=== PATIENT | female | born 1960 | race Caucasian/White ===

== ENCOUNTER 2017-01-16 13:33 | Inpatient (IN) | payer MEDICAID, MEDICARE ==
[2017-01-16] MEDS ORDERED: HYDROmorphone 0.5 MG/0.5 ML Syringe IVPUSH ONE ×2 (15:23→18:02)
[2017-01-16] MEDS ORDERED: Sodium Chloride 0.9% 1,000 ML IV SCH (15:30)
--- NOTE | 2017-01-16 15:30 | EDM.PDOC ---
ED HPI GENERAL MEDICAL PROBLEM - General Chief Complaint: Abdominal Pain Stated Complaint: SWEATS/UPPER STOMACH ACHE Time Seen by Provider: 01/16/17 15:10 Source of Information: Reports: Patient History Limitations: Reports: No Limitations - History of Present Illness INITIAL COMMENTS - FREE TEXT/NARRATIVE: 56-year-old female who had a gastric bypass 2 years ago and who has done very well has had a few episodes of intermittent epigastric pain that lasted up to an hour but she "was able to breathe through them". Today she has developed the pain again and it is lasted for several hours, waxing and waning but slowly getting worse. She is very uncomfortable. No fevers or chills, no diarrhea, no abdominal distention. She tried to drink some water but it made it worse, she took some gas medication and there was no effect. She has no nausea. The pain does not radiate. Onset: Gradual Duration: Hour(s): (She's had pain now for 3-5 hours) Location: Reports: Abdomen Quality: Reports: Sharp, Other (Recurring cramping sharp pain) Severity: Moderate Improves with: Reports: None Worsens with: Reports: Other (Worsened when she tried to drink water) Associated Symptoms: Reports: Diaphoresis (Experienced a significant episode of significant diaphoresis prior to coming in), Loss of Appetite. Denies: Chest Pain, Cough, Fever/Chills (Patient experienced a significant episode of diaphoresis prior to coming in), Nausea/Vomiting, Shortness of Breath Upper Abdomen Pain Score (Numeric/FACES): 8 - Related Data Allergies Allergy/AdvReac Type Severity Reaction Status Date / Time No Known Allergies Allergy Verified 01/16/17 19:39 Home Meds: Home Meds Diclofenac Sodium [Voltaren 1% Gel] 1 applic TP QID PRN 06/06/14 [History] Acetaminophen [Tylenol] 650 mg PO Q6H PRN #100 ml 06/10/14 [Rx] Past Medical History HEENT History: Reports: Impaired Vision Gastrointestinal History: Reports: Hiatal Hernia Musculoskeletal History: Reports: Arthritis Psychiatric History: Reports: Depression - Past Surgical History GI Surgical History: Reports: Bariatric Procedure, EGD, Hernia Repair/Other Social & Family History - Tobacco Use Smoking Status *Q: Former Smoker Years of Tobacco use: 25 Used Tobacco, but Quit: No Month Tobacco Last Used: 03/2014 Second Hand Smoke Exposure: No - Caffeine Use Caffeine Use: Reports: Coffee - Alcohol Use Days Per Week of Alcohol Use: 0 - Recreational Drug Use Recreational Drug Use: No ED ROS GENERAL - Review of Systems Review Of Systems: See Below Constitutional: Denies: Fever, Chills, Malaise HEENT: Reports: No Symptoms Respiratory: Denies: Shortness of Breath, Cough Cardiovascular: Denies: Chest Pain GI/Abdominal: Reports: Abdominal Pain. Denies: Constipation, Diarrhea, Hematemesis, Nausea, Vomiting : Reports: No Symptoms Musculoskeletal: Reports: No Symptoms Skin: Reports: Diaphoresis Neurological: Reports: No Symptoms ED EXAM, GI/ABD - Physical Exam Exam: See Below Exam Limited By: No Limitations General Appearance: Alert, Anxious, Mild Distress Eyes: Bilateral: Normal Appearance (Normal hydration, crying tears, no jaundice) Throat/Mouth: Normal Inspection Head: Atraumatic Respiratory/Chest: No Respiratory Distress, Lungs Clear Cardiovascular: Regular Rate, Rhythm GI/Abdominal Exam: Normal Bowel Sounds, Soft, Tender (Patient is very tender to palpation in the right upper quadrant to epigastric area), Other (Some peritoneal rebound tenderness felt in the upper abdomen with lower abdominal palpation) Course - Vital Signs Last Recorded V/S: Last Vital Signs Temp 97.6 F 01/17/17 16:30 Pulse 79 01/17/17 17:00 Resp 16 01/17/17 17:00 BP 122/53 L 01/17/17 17:00 Pulse Ox 96 01/17/17 17:00 - Orders/Labs/Meds Orders: Medication Orders Hydrocodone Bitart/Acetaminophen ([place] 325-5 Mg) 1 - 2 tab PO Q4H PRN PRN Reason: PAIN Last Admin: 01/17/17 16:44 Dose: 2 tab Diphenhydramine HCl (Benadryl) 25 - 50 mg IVPUSH Q4H PRN PRN Reason: Itching Diphenhydramine HCl (Benadryl) 25 - 50 mg PO Q4H PRN PRN Reason: Itching Hydromorphone HCl (Dilaudid [employer] 15 Mg In Ns 30 Ml) 0 mg IV ASDIRECTED PRN; Protocol PRN Reason: Pain Last Admin: 01/16/17 20:06 Dose: 15 mg Aztreonam/Dextrose 1 gm/ (Premix) 50 mls @ 100 mls/hr IV Q8HR [facility] Last Admin: 01/17/17 14:45 Dose: 100 mls/hr Dextrose/Lactated Ringer's (Dextrose 5%-Lactated Ringers) 1,000 mls @ 150 mls/ hr IV ASDIRECTED [facility] Ampicillin Sodium/Sulbactam (Sodium 3 gm/ Sodium Chloride) 100 mls @ 200 mls/ hr IV Q6H [facility] Influenza Virus Vaccine (Fluzone Quad [id number]) 60 mcg IM .ONCE ONE Stop: 01/17/17 21:01 Naloxone HCl (Narcan) 0.4 mg IVPUSH Q2M PRN PRN Reason: Respiratory Distress Ondansetron HCl (Zofran) 4 mg IVPUSH Q4H PRN PRN Reason: NAUSEA Pantoprazole Sodium (Protonix Iv) 40 mg IV Q24H [facility] Last Admin: 01/17/17 17:28 Dose: 40 mg Labs: Laboratory Tests 01/16/17 01/16/17 Range/Units 15:35 15:35 WBC 12.6 H (4.5-11.0) K/uL RBC 5.10 (3.30-5.50) M/uL Hgb 16.0 H (12.0-15.0) g/dL Hct 45.5 (36.0-48.0) % MCV 89 (80-98) fL MCH 31 (27-31) pg MCHC 35 (32-36) % Plt Count 240 (150-400) K/uL Neut % (Auto) 88 H (36-66) % Lymph % (Auto) 6 L (24-44) % [place] % (Auto) 6 (2-6) % Eos % (Auto) 0 L (2-4) % Baso % (Auto) 0 (0-1) % Sodium 138 L (140-148) mmol/L Potassium 3.9 (3.6-5.2) mmol/L Chloride 105 (100-108) mmol/L Carbon Dioxide 25 (21-32) mmol/L Anion Gap 11.9 (5.0-14.0) mmol/L BUN 12 (7-18) mg/dL Creatinine 0.6 (0.6-1.0) mg/dL Est Cr Clr Drug Dosing 107.16 mL/min Estimated GFR (MDRD) > 60 (>60) Glucose 103 (74-106) mg/dL Calcium 8.9 (8.5-10.1) mg/dL Total Bilirubin 0.8 D (0.2-1.0) mg/dL AST 357 H D (15-37) U/L ALT 215 H (12-78) U/L Alkaline Phosphatase 157 H (46-116) U/L Total Protein 6.5 (6.4-8.2) g/dL Albumin 3.4 (3.4-5.0) g/dL Globulin 3.1 (2.3-3.5) g/dL Albumin/Globulin Ratio 1.1 L (1.2-2.2) Amylase 39 (25-115) U/L Lipase 125 (73-393) U/L Meds: Medications Generic Name Dose Route Start Last Admin Trade Name Freq PRN Reason Stop Dose Admin Hydrocodone Bitart/Acetaminophen 1 - 2 tab 01/17/17 15:07 01/17/17 16:44 [place] 325-5 Mg PO 2 tab Q4H PRN Administration PAIN Diphenhydramine HCl 25 - 50 mg 01/17/17 16:23 Benadryl IVPUSH Q4H PRN Itching Diphenhydramine HCl 25 - 50 mg 01/17/17 16:26 Benadryl PO Q4H PRN Itching Hydromorphone HCl 0 mg 01/16/17 19:35 01/16/17 20:06 Dilaudid [employer] 15 Mg In Ns 30 Ml IV 15 mg ASDIRECTED PRN Administration Pain Protocol Aztreonam/Dextrose 1 gm/ 50 mls @ 100 mls/hr 01/17/17 14:00 01/17/17 14:45 Premix IV 100 mls/hr Q8HR [facility] Administration Dextrose/Lactated Ringer's 1,000 mls @ 150 mls/hr 01/17/17 15:15 Dextrose 5%-Lactated Ringers IV ASDIRECTED [facility] Ampicillin Sodium/Sulbactam 100 mls @ 200 mls/hr 01/17/17 20:00 Sodium 3 gm/ Sodium Chloride IV Q6H [facility] Influenza Virus Vaccine 60 mcg 01/17/17 21:00 Fluzone Quad [id number] IM 01/17/17 21:01 .ONCE ONE Naloxone HCl 0.4 mg 01/16/17 19:35 Narcan IVPUSH Q2M PRN Respiratory Distress Ondansetron HCl 4 mg 01/17/17 15:13 Zofran IVPUSH Q4H PRN NAUSEA Pantoprazole Sodium 40 mg 01/17/17 16:00 01/17/17 17:28 Protonix Iv IV 40 mg Q24H [facility] Administration Discontinued Medications Generic Name Dose Route Start Last Admin Trade Name Freq PRN Reason Stop Dose Admin Bupivacaine HCl/Epinephrine Bitart Confirm 01/17/17 11:30 01/17/17 13:36 Marcaine 0.5%/Epinephrine 1:200,000 Administered 01/17/17 11:31 20 ml Dose Administration 50 ml .ROUTE .STK-MED ONE Dexamethasone Confirm 01/17/17 11:11 Dexamethasone Administered 01/17/17 11:12 Dose 4 mg .ROUTE .STK-MED ONE Diphenhydramine HCl 25 - 50 mg 01/16/17 22:13 01/17/17 07:58 Benadryl IVPUSH 50 mg Q4H PRN Administration Itching Fentanyl Confirm 01/17/17 11:11 Sublimaze Administered 01/17/17 11:12 Dose 250 mcg .ROUTE .STK-MED ONE Glycopyrrolate Confirm 01/17/17 11:11 Robinul Administered 01/17/17 11:12 Dose 1 mg .ROUTE .STK-MED ONE Hydromorphone HCl 0.5 mg 01/16/17 15:23 01/16/17 15:57 Dilaudid IVPUSH 01/16/17 15:24 0.5 mg ONETIME ONE Administration Hydromorphone HCl 0.5 mg 01/16/17 18:02 01/16/17 18:11 Dilaudid IVPUSH 01/16/17 18:03 0.5 mg ONETIME ONE Administration Hydroxyzine HCl 50 mg 01/17/17 14:06 01/17/17 14:13 Vistaril IM 01/17/17 14:07 50 mg ONETIME ONE Administration Sodium Chloride 1,000 mls @ 500 mls/hr 01/16/17 15:30 01/16/17 15:56 Normal Saline IV 500 mls/hr ASDIRECTED [facility] Administration Ampicillin Sodium/Sulbactam 100 mls @ 200 mls/hr 01/16/17 20:00 01/17/17 08: 18 Sodium 3 gm/ Sodium Chloride IV 200 mls/hr Q6H [facility] Administration Dextrose/Lactated Ringer's 1,000 mls @ 150 mls/hr 01/16/17 19:45 01/17/17 04: 51 Dextrose 5%-Lactated Ringers IV 150 mls/hr ASDIRECTED [facility] Administration Aztreonam 1 gm/ Sodium 50 mls @ 100 mls/hr 01/16/17 22:00 01/17/17 05:15 Chloride IV 100 mls/hr Q8HR [facility] Administration Dextrose/Lactated Ringer's 1,000 mls @ 100 mls/hr 01/17/17 07:21 Dextrose 5%-Lactated Ringers IV ASDIRECTED [facility] Ampicillin Sodium/Sulbactam 100 mls @ 200 mls/hr 01/17/17 12:15 01/17/17 12: 45 Sodium 3 gm/ Sodium Chloride IV 01/17/17 12:44 200 mls/hr ONETIME ONE Administration Lactated Ringer's Confirm 01/17/17 12:49 Ringers, Lactated Administered 01/17/17 12:50 Dose 1,000 mls @ as directed .ROUTE .STK-MED ONE Influenza Virus Vaccine 1 each 01/17/17 12:00 Pharmacy To Dose - Influenza Vaccine IM 01/17/17 12:01 ONETIME ONE Influenza Virus Vaccine 60 mcg 01/16/17 20:15 01/17/17 00:26 Fluzone Quad [id number] IM 01/16/17 20:16 Not Given .ONCE ONE Midazolam HCl Confirm 01/17/17 11:11 Versed 1 Mg/Ml Administered 01/17/17 11:12 Dose 2 mg .ROUTE .STK-MED ONE Neostigmine Methylsulfate Confirm 01/17/17 11:11 Neostigmine Administered 01/17/17 11:12 Dose 5 mg .ROUTE .STK-MED ONE Ondansetron HCl Confirm 01/17/17 11:11 Zofran Administered 01/17/17 11:12 Dose 4 mg .ROUTE .STK-MED ONE Propofol Confirm 01/17/17 11:11 Diprivan 20 Ml Administered 01/17/17 11:12 Dose 200 mg .ROUTE .STK-MED ONE Rocuronium [place] Confirm 01/17/17 11:11 Zemuron Administered 01/17/17 11:12 Dose 50 mg .ROUTE .[facility] ONE - Re-Assessments/Exams Free Text/Narrative Re-Assessment/Exam: 01/16/17 15:29 An IV was started, hydration with normal saline was initiated and the patient given 0.5 mg of Dilaudid IV. A CBC, CMP, amylase, lipase were obtained with the intent of obtaining an IV contrast enhanced abdominal CAT scan when the labs return. 01/16/17 17:59 White count was 12,600. AST, ALT, alkaline phosphatase were all elevated but bilirubin was normal. Because of the localized epigastric and right upper quadrant pain and elevated LFTs, a gallbladder ultrasound was obtained prior to a CT scan. This was positive with a lot of stones, thickened wall so Dr. Padilla was consulted and accepted the patient to be admitted and covered for acute cholecystitis with intention of having surgery tomorrow. Departure - Departure Time of Disposition: 18:54 Disposition: Admitted As Inpatient 68 Condition: Fair Clinical Impression: Cholecystitis Abdominal pain Qualifiers: Abdominal location: right upper quadrant Qualified Code(s): R10.11 - Right upper quadrant pain - Discharge Information
[2017-01-16] MEDS ORDERED: HYDROmorphone/Normal Saline 15 MG/30 ML PCA IV PRN (19:35)
[2017-01-16] MEDS ORDERED: Naloxone 0.4 MG/ML SDV IVPUSH PRN (19:35)
[2017-01-16] MEDS: Ampicillin/Sulbactam Na 3 GM in Sodium Chloride 0.9% 100 ML IV SCH (20:05)
[2017-01-16] MEDS: Dextrose 5%-Lactated Ringers 1,000 ML IV SCH (20:06)
[2017-01-16] MEDS ORDERED: FLU Vacc QS 2017-18 (36mos UP)/PF 60 MCG/0.5 ML Syringe IM ONE (20:15)
[2017-01-16] MEDS: diphenhydrAMINE 50 MG/ML SDV IVPUSH PRN (22:55)
[2017-01-17] MEDS: Ampicillin/Sulbactam Na 3 GM in Sodium Chloride 0.9% 100 ML IV SCH ×3 (01:51→20:19)
[2017-01-17] MEDS: diphenhydrAMINE 50 MG/ML SDV IVPUSH PRN ×2 (03:41→07:58)
[2017-01-17] MEDS: Dextrose 5%-Lactated Ringers 1,000 ML IV SCH (04:51)
[2017-01-17] MEDS ORDERED: Dextrose 5%-Lactated Ringers 1,000 ML IV SCH ×2 (07:21→15:15)
--- NOTE | 2017-01-17 08:54 | PCM.HP ---
H&P History of Present Illness - General Admit Problem/Dx: Admission Diagnosis/Problem Admission Diagnosis/Problem Cholecystitis Source of Information: Patient - History of Present Illness Initial Comments - Free Text/Narative: Sudden onset of right upper quadrant abdominal pain yesterday. Symptom Onset Date: 01/16/17 Location: Reports: Abdomen Severity: Moderate Improves with: Reports: Medication Worsens with: Reports: Eating, Movement Context: Reports: Sick Contact Associated Symptoms: Reports: Loss of Appetite, Nausea/Vomiting Upper Abdomen Pain Score (Numeric/FACES): 4 - Related Data Allergies/Adverse Reactions: Allergies Allergy/AdvReac Type Severity Reaction Status Date / Time No Known Allergies Allergy Verified 01/16/17 19:39 Home Medications: Home Meds Diclofenac Sodium [Voltaren 1% Gel] 1 applic TP QID PRN 06/06/14 [History] Acetaminophen [Tylenol] 650 mg PO Q6H PRN #100 ml 06/10/14 [Rx] Past Medical History HEENT History: Reports: Impaired Vision Gastrointestinal History: Reports: Hiatal Hernia Musculoskeletal History: Reports: Arthritis Psychiatric History: Reports: Depression - Past Surgical History GI Surgical History: Reports: Bariatric Procedure, EGD, Hernia Repair/Other Social & Family History - Family History Family Medical History: Noncontributory - Tobacco Use Smoking Status *Q: Light Tobacco Smoker Years of Tobacco use: 17 Packs/Tins Daily: 0.2 Used Tobacco, but Quit: No Month Tobacco Last Used: 03/2014 Second Hand Smoke Exposure: Yes - Caffeine Use Caffeine Use: Reports: Coffee - Alcohol Use Days Per Week of Alcohol Use: 0 Number of Drinks Per Day: 0 Total Drinks Per Week: 0 - Recreational Drug Use Recreational Drug Use: No H&P Review of Systems - Review of Systems: Review Of Systems: ROS reveals no pertinent complaints other than HPI. Exam - Exam Exam: See Below - Vital Signs Vital Signs: Last Vital Signs Temp 97.5 F 01/17/17 08:03 Pulse 57 L 01/17/17 08:03 Resp 16 01/17/17 08:03 BP 101/59 L 01/17/17 08:03 Pulse Ox 99 01/17/17 08:03 Weight: 152 lb 6.4 oz - Exam Quality Assessment: DVT Prophylaxis General: Mild Distress HEENT: PERRLA Neck: Supple, Trachea Midline Lungs: Clear to Auscultation, Normal Respiratory Effort Cardiovascular: Regular Rate, Regular Rhythm GI/Abdominal Exam: Tender (in right upper quadrant) (Female) Exam: Deferred Rectal (Female) Exam: Deferred Back Exam: Normal Inspection Extremities: Normal Inspection Skin: Warm, Dry, Intact Neurological: Cranial Nerves Intact, Reflexes Equal Bilateral Neuro Extensive - Mental Status: Alert, Oriented x3 Neuro Extensive - Motor, Sensory, Reflexes: CN II-XII Intact Psychiatric: Labile Mood - Patient Data Result Diagrams: 01/16/17 15:35 01/16/17 15:35 *Q Meaningful Use (ADM) - VTE *Q VTE Criteria *Q: - Stroke *Q Stroke Criteria *Q: - AMI *Q AMI Criteria *Q: - Problem List (1) Cholecystitis SNOMED Code(s): 53537123 ICD Code: K81.9 - CHOLECYSTITIS, UNSPECIFIED Status: Acute Current Visit : Yes (2) Abdominal pain SNOMED Code(s): 24013462 ICD Code: R10.9 - UNSPECIFIED ABDOMINAL PAIN Status: Acute Current Visit : Yes Qualifiers: Abdominal location: right upper quadrant Qualified Code(s): R10.11 - Right upper quadrant pain (3) History of Arjun-en-Y gastric bypass SNOMED Code(s): 256147234 ICD Code: Z98.84 - BARIATRIC SURGERY STATUS Status: Chronic Current Visit : No Onset Date: 06/07/14 Problem List Initiated/Reviewed/Updated: Yes Orders Last 24hrs: Active Orders 24 hr Category Date Time Status Admission Status [Patient Status] [ADT] Routine ADT 01/16/17 17:00 Active Patient Status [ADT] Routine ADT 01/16/17 17:00 Active Communication Order [RC] STAT Care 01/16/17 19:35 Active Incentive Spirometry [RT Incentive Spirometry] [RC] Care 01/17/17 07:22 Active ASDIRECTED Notify Provider [RC] PRN Care 01/16/17 19:35 Active Oxygen Therapy [RC] PRN Care 01/16/17 19:32 Active [employer] Record [RC] PER UNIT ROUTINE Care 01/16/17 19:35 Active Pulse Oximetry [RC] CONTINUOUS Care 01/16/17 19:35 Active Up ad Damaris [RC] ASDIRECTED Care 01/16/17 19:32 Active Verify Patient Consent Obtain [RC] ASDIRECTED Care 01/17/17 07:20 Active Vital Signs [RC] Q4H Care 01/16/17 19:32 Active Nothing per Oral Now Diet [DIET] Diet 01/16/17 Breakfast Active FERRITIN [CHEM] Routine Lab 01/17/17 06:40 Ordered FOLIC ACID [CHEM] Routine Lab 01/17/17 06:40 Ordered VITAMIN B-1, THIAMINE, PLASMA [REF] Urgent Lab 01/17/17 06:46 Received VITAMIN B12 [CHEM] Routine Lab 01/17/17 06:40 Ordered Ampicillin/Sulbactam Na [Unasyn] 3 gm Med 01/16/17 20:00 Active Sodium Chloride 0.9% [Normal Saline] 100 ml IV Q6H Aztreonam/Dextrose-Water [Azactam in Dextrose,Iso- Med 01/17/17 14:00 Active Osmotic 1 GM/50 ML] 1 gm Premix Bag 1 bag IV Q8HR Dextrose 5%-Lactated Ringers 1,000 ml Med 01/17/17 07:21 Active IV ASDIRECTED FLU Vacc [id number] 36Mos UP/PF [Fluzone Quad [id number]] Med 01/17/17 13:00 Once 60 mcg IM .ONCE ONE HYDROmorphone/Normal Saline [Dilaudid [employer] 15 MG in NS Med 01/16/17 19:35 Active 30 ML] See Protocol IV ASDIRECTED PRN Naloxone [Narcan] Med 01/16/17 19:35 Active 0.4 mg IVPUSH Q2M PRN diphenhydrAMINE [Benadryl] Med 01/16/17 22:13 Active 25 - 50 mg IVPUSH Q4H PRN Medication Discontinuation Instructions [OM.PC] Stat Oth 01/16/17 19:35 Ordered SCD [Sequential Compression Device] [OM.PC] Routine Oth 01/16/17 19:37 Ordered Code Status [Resuscitation Status] Routine Resus Stat 01/16/17 19:25 Ordered Medication Orders Diphenhydramine HCl (Benadryl) 25 - 50 mg IVPUSH Q4H PRN PRN Reason: Itching Last Admin: 01/17/17 07:58 Dose: 50 mg Admin: 01/17/17 03:41 Dose: 50 mg Admin: 01/16/17 22:55 Dose: 25 mg Hydromorphone HCl (Dilaudid [place] [employer] 15 Mg In Ns 30 Ml) 0 mg IV ASDIRECTED PRN; Protocol PRN Reason: Pain Last Admin: 01/16/17 20:06 Dose: 15 mg Ampicillin Sodium/Sulbactam (Sodium 3 gm/ Sodium Chloride) 100 mls @ 200 mls/ hr IV Q6H [facility] Last Admin: 01/17/17 08:18 Dose: 200 mls/hr Admin: 01/17/17 01:51 Dose: 200 mls/hr Admin: 01/16/17 20:05 Dose: 200 mls/hr Aztreonam/Dextrose 1 gm/ (Premix) 50 mls @ 100 mls/hr IV Q8HR [facility] Dextrose/Lactated Ringer's (Dextrose 5%-Lactated Ringers) 1,000 mls @ 100 mls/ hr IV ASDIRECTED [facility] Influenza Virus Vaccine (Fluzone Quad [id number]) 60 mcg IM .ONCE ONE Stop: 01/17/17 13:01 Naloxone HCl (Narcan) 0.4 mg IVPUSH Q2M PRN PRN Reason: Respiratory Distress Plan: Scheduled Laparoscopic possible open Cholecystectomy - General anesthesia - Case to Follow - NPO - Bryson Mario 01/17/17
[2017-01-17] MEDS ORDERED: Dexamethasone 4 MG/ML SDV ONE (11:11)
[2017-01-17] MEDS ORDERED: Ondansetron 4 MG/2 ML SDV ONE (11:11)
[2017-01-17] MEDS ORDERED: fentaNYL 250 MCG/5 ML SDV ONE (11:11)
[2017-01-17] MEDS ORDERED: Neostigmine Methylsulfate 1 MG/ML 5 ML Syringe ONE (11:11)
[2017-01-17] MEDS ORDERED: Propofol 200 MG/20 ML SDV ONE (11:11)
[2017-01-17] MEDS ORDERED: Midazolam 1 MG/ML 2 ML SDV ONE (11:11)
[2017-01-17] MEDS ORDERED: Rocuronium 50 MG/5 ML Vial ONE (11:11)
[2017-01-17] MEDS ORDERED: Glycopyrrolate 0.2 MG/ML 5 ML MDV ONE (11:11)
[2017-01-17] MEDS ORDERED: Bupivacaine 0.5%/EPINEPHrine 1:200,000 50 ML MDV ONE (11:30)
[2017-01-17] MEDS ORDERED: Ampicillin/Sulbactam Na 3 GM in Sodium Chloride 0.9% 100 ML IV ONE (12:15)
[2017-01-17] MEDS ORDERED: Lactated Ringers 1,000 ML ONE (12:49)
[2017-01-17] MEDS ORDERED: FLU Vacc QS 2017-18 (36mos UP)/PF 60 MCG/0.5 ML Syringe IM ONE ×2 (13:00→21:00)
[2017-01-17] MEDS ORDERED: hydrOXYzine HCl 100 MG/2 ML SDV IM ONE (14:06)
[2017-01-17] MEDS: Aztreonam/Dextrose-Water 1 GM in Premix Bag 1 BAG IV SCH ×2 (14:45→22:21)
[2017-01-17] MEDS ORDERED: Ondansetron 4 MG/2 ML SDV IVPUSH PRN (15:13)
[2017-01-17] MEDS ORDERED: Pantoprazole 40 MG Vial IV SCH (16:00)
[2017-01-17] MEDS ORDERED: diphenhydrAMINE 50 MG/ML SDV IVPUSH PRN (16:23)
[2017-01-17] MEDS ORDERED: diphenhydrAMINE 25 MG Cap PO PRN (16:26)
[2017-01-17] MEDS: Acetaminophen/HYDROcodone 325-5 MG Tab PO PRN ×2 (16:44→20:48)
[2017-01-18] MEDS: Acetaminophen/HYDROcodone 325-5 MG Tab PO PRN ×3 (01:53→10:12)
[2017-01-18] MEDS: Ampicillin/Sulbactam Na 3 GM in Sodium Chloride 0.9% 100 ML IV SCH ×2 (01:56→07:53)
[2017-01-18] MEDS: Aztreonam/Dextrose-Water 1 GM in Premix Bag 1 BAG IV SCH (06:01)
[2017-01-18 09:53] VITALS: BP 133/61
--- NOTE | 2017-01-19 11:28 | DISCH ---
FINAL DIAGNOSES: 1. Acute cholecystitis with pericholecystic inflammatory fluid collection associated with localized peritonitis. 2. Bariatric surgery status. 3. History of depression. 4. History of hiatal hernia. OPERATIVE PROCEDURES: Done on 01/17/2017, diagnostic laparoscopy with, 1. Laparoscopic cholecystectomy. 2. Drainage of the pericholecystic inflammatory fluid collection. HOSPITAL COURSE: This is a 56-year-old female presenting with a picture of acute cholecystitis. Following admission and initiation of IV antibiotics, the patient underwent laparoscopic cholecystectomy. She had as expected, tightly distended, very edematous gallbladder consistent with an acute cholecystitis; there is an inflammatory pericholecystic fluid collection present as well, which was evacuated. Postoperatively, she has done well and will be discharged home today. She is switched over to oral pain medication and follow up with Mimi Barroso will be at [facility] on 01/24/2017. DISCHARGE MEDICATIONS: Home medications plus [place] 5/325, 1 to 2 tabs q.4 hours p.r.n. pain.
--- NOTE | 2017-01-19 14:29 | OR ---
DATE OF PROCEDURE: 01/17/2017 PREOPERATIVE DIAGNOSIS: Acute cholecystitis. POSTOPERATIVE DIAGNOSIS: Acute cholecystitis with pericholecystic inflammatory fluid collection associated with localized peritonitis. OPERATIVE PROCEDURE: 1. Laparoscopic cholecystectomy (21747). 2. Drainage of pericholecystic inflammatory fluid collection associated with localized peritonitis (56642). ANESTHESIA: General. BOAT GARNISHER: Mimi Barroso PA-C. INDICATIONS FOR PROCEDURE: This is a 56-year-old presenting with a picture of an acute cholecystitis. She is admitted overnight on IV antibiotics and the patient to undergo cholecystectomy at this time. Potential risks of the procedure including bleeding, infection, injury to underlying viscera such as common bile duct, possibility of stones migrating into the common bile duct requiring additional procedures for correction were all reviewed, and the patient wishes to proceed. DETAILS OF PROCEDURE: The patient was taken to the operating room and placed in a supine position. After general endotracheal anesthesia was induced, the abdomen was prepped and draped, a transverse incision was made just to the right of the umbilicus and the peritoneal cavity entered under direct vision with an Optiview trocar and inflated to 15 mmHg pressure with CO2. Laparoscope was reinserted. No underlying trocar insertion site injuries were seen. Following this, a 12 mm epigastric trocar was well single 5 mm right abdominal trocar were placed and the upper abdomen, examined. The patient, as expected, had a striking acute cholecystitis with the gallbladder being markedly edematous. As this was elevated, there was a slightly purulent inflammatory fluid collection that was located just behind the gallbladder. This was associated with localized peritonitis in that region with the peritoneum being reddened and quite friable. This fluid was evacuated and sent for culture. At this point, the gallbladder was retracted anteriorly and laterally and dissection began on the gallbladder neck with the Harmonic scalpel, continued around the gallbladder neck and cystic duct junction. Once that area as well as the cystic artery were both identified, 3 clips were placed proximally, one distally on each structure and the gallbladder was then dissected off the gallbladder bed using Harmonic scalpel, contained numerous tiny stones, some which were evacuated to facilitate the gallbladder being retrieved through the abdominal wall at the epigastric site. At this point, no further problems noted. The drain was then placed adjacent to the gallbladder bed into the area of the inflammatory fluid collection and taken out through the right lateral trocar site with no further problems noted. Trocars were removed. The peritoneal cavity deflated. Incision was closed with some 4-0 Vicryl skin stitch. At the fascia, the epigastric site was closed with 0 Vicryl stitch as well and the patient was taken to the recovery room in satisfactory condition. There were no overt complications. Bryson Padilla MD /[id number]
== END 2017-01-18 10:34 | disposition home or self-care (01) | DRG 417 ==
LOC: JP.ED 13:33 → JP.2SS 17:00
PROVIDERS: ADMIT Surgery; ATTEND Surgery
PROC: 0FT44ZZ Resection of Gallbladder, Percutaneous Endoscopic Approach (ICD-10-PCS; principal; 2017-01-17)
PROC: 0D9W4ZX Drainage of Peritoneum, Percutaneous Endoscopic Approach, Diagnostic (ICD-10-PCS; 2017-01-17)
DX: K81.9 Cholecystitis, unspecified (principal); R10.11 Right upper quadrant pain; K81.0 Acute cholecystitis; K65.8 Other peritonitis; Z98.84 Bariatric surgery status; Z87.891 Personal history of nicotine dependence; Z23 Encounter for immunization; M19.90 Unspecified osteoarthritis, unspecified site; H54.7 Unspecified visual loss; Z87.898 Personal history of other specified conditions
CPT/HCPCS: 36415; 80053; 82150; 83690; 85025; 96360; 99285; J1170; J7040; 76705; 82247; 82607; 82728; 82746; 84075; 84425; 85027; 87070; 87075; 87205; 88304; 90686; 99284; A9270-GY; C9113; G0008; J0295; J1100; J1200; J2250; J2405; J2704; J2710; J3010; J3410; J3490; J7030; J7042; J7050; J7120; S0073

== ENCOUNTER 2018-06-22 07:59 | Day surgery (SDC) | payer MEDICARE, MEDICAID ==
[~2018-06-22 07:59] MED LIST: Cyanocobalamin (Vitamin B12) 1,000 MCG/ML SDV IM ONE; Glycopyrrolate 0.2 MG/ML 2 ML SDV IVPUSH ONE; Lactated Ringers 1,000 ML IV ONE; MVI, Adult with Vitamin K 10 ML, Thiamine 200 MG, Chromium/Copper/Mang/Selen/Zn 1 ML in... IV ONE
[2018-06-22] MEDS ORDERED: fentaNYL 100 MCG/2 ML SDV ONE (08:00)
[2018-06-22] MEDS ORDERED: Midazolam 1 MG/ML 2 ML SDV ONE (08:00)
[2018-06-22] MEDS ORDERED: Propofol 200 MG/20 ML SDV ONE (08:00)
[2018-06-22] MEDS ORDERED: Cyanocobalamin (Vitamin B12) 1,000 MCG/ML SDV IM ONE (08:48)
[2018-06-22] MEDS ORDERED: Lactated Ringers 1,000 ML IV ONE (09:00)
[2018-06-22] MEDS ORDERED: Glycopyrrolate 0.2 MG/ML 2 ML SDV IVPUSH ONE (09:30)
[2018-06-22] MEDS ORDERED: MVI, Adult with Vitamin K 10 ML, Thiamine 200 MG, Chromium/Copper/Mang/Selen/Zn 1 ML in... IV ONE ×4 (10:00)
[2018-06-22] MEDS ORDERED: Pantoprazole 40 MG Vial IVPUSH ONE (10:15)
[2018-06-22 11:41] VITALS: BP 138/79
--- NOTE | 2018-06-28 13:07 | OR ---
DATE OF PROCEDURE: 06/22/2018 PREOPERATIVE DIAGNOSES: 1. Epigastric pain, status post Arjun-en-Y gastric bypass. 2. Rule out gastrogastric fistula. OPERATIVE PROCEDURE: Upper GI endoscopy. ANESTHESIA: IV sedation. INDICATION FOR PROCEDURE: This is a 58-year-old female status post Arjun-en-Y gastric bypass in 2001, presenting with some epigastric discomfort. A CT scan with oral contrast was obtained, which showed no specific abnormalities other than some dye accumulating into the bypassed stomach. The plan is to proceed with an upper GI endoscopy with attempted identification of gastrogastric fistula, as it is possible that the dye simply had refluxed into the biliopancreatic limb and from there back into the bypassed stomach. This would be particularly impossible given the patient's surgery being done in 2001, at which time, quite sure the biliopancreatic limbs were constructed. The plan is to proceed with upper GI endoscopy with biopsies as indicated. Potential risks including bleeding and perforation were discussed, and the patient wishes to proceed. DETAILS OF PROCEDURE: The patient was taken to the operating room and placed in a left lateral decubitus position. IV sedation was administered, after which the upper GI endoscope was passed orally through the length of the esophagus, into the gastric pouch, and from there through the gastrojejunostomy and roughly 20 cm into the Arjun limb. Overall, no significant abnormalities were noted. The patient had normal hypopharynx, larynx, upper esophageal sphincter, and esophageal body. At the EG junction, no significant inflammation was noted. The pouch remained fairly small, and there was no obvious pouch gastritis. Gastrojejunostomy likewise was unremarkable as was the visualized portion of the Arjun limb. Multiple angles were obtained in order to try to identify any gastrogastric fistula and none could be identified, and there was none of the inflammation that one typically sees and/or bile reflux associated with gastrogastric fistula. The scope was then withdrawn. The procedure then concluded. The patient was started on Prilosec 20 mg b.i.d. on 06/11/2018, i.e., around 10 or 11 days ago, and thinks she is improving somewhat. At this point, we will add Carafate 500 mg p.o. q.i.d. to be taken in a liquid form. She will have a followup with Mimi Norby in one month. Bryson Padilla MD /[id number]
== END 2018-06-22 11:50 | disposition home or self-care (01) ==
LOC: JP.SDS 07:59
PROVIDERS: ATTEND Surgery
DX: R10.13 Epigastric pain (principal); Z98.84 Bariatric surgery status; Z87.891 Personal history of nicotine dependence
CPT/HCPCS: C9113; J2250; J2704; J3010; J3411; J3420; J3490; J7120